=== PATIENT | male | born 1990 | race Caucasian/White ===

== ENCOUNTER 2017-01-26 08:34 | Emergency (ER) | payer MEDICAID ==
--- NOTE | ~2017-01-26 | CR20 ---
[facility]. [facility] A Service of [facility] & [facility] RADIOLOGY TEXT RESULTS PATIENT: AWA PALMA LOCATION: SED : [birth year] UNIT #: [id number] AGE: [address]: Eder White MD SEX: M ORDER DR: [id number] [place] [id number] E MR#: [id number] Acc #: [id number] NAME: AWA PALMA : 1990 SEX: M STUDY DATE/TIME: 01/26/2017 8:38 UNIT: SED ROOM: STUDY DESCRIPTION: CR Ankle Min 3 Views Lt Attending Physician: Eder White M.D. Ordering Physician: Eder White M.D. Primary Care Physician: No Primary Care Physician MEDICAL IMAGING REPORT This report is preliminary unless electronic signature is present. EXAM Left ankle, 3 views. HISTORY Trauma last night. Pain and swollen ankle. COMPARISON STUDIES No comparisons. FINDINGS There is mild soft tissue swelling adjacent to the medial malleolus. No fracture or dislocation. IMPRESSION No fracture or dislocation. Dictated by... Roman Dailey M.D. THIS IS AN ELECTRONICALLY VERIFIED REPORT Roman Dailey M.D. at 01/26/2017 4:32 PM ALYSE/shaggy TD: 01/26/2017 11:32 JOB #: [id number] MEDICAL IMAGING REPORT Page 1 of 1
--- NOTE | ~2017-01-26 | CR126 ---
[facility]. [facility] A Service of [facility] & [facility] RADIOLOGY TEXT RESULTS PATIENT: AWA PALMA LOCATION: SED : [birth year] UNIT #: [id number] AGE: [address]: Eder White MD SEX: M ORDER DR: [id number] [place] [id number] E MR#: [id number] Acc #: [id number] NAME: AWA PALMA : 1990 SEX: M STUDY DATE/TIME: 01/26/2017 8:38 UNIT: SED ROOM: STUDY DESCRIPTION: CR Foot Complete Min 3 View Lt Attending Physician: Eder White M.D. Ordering Physician: Eder White M.D. Primary Care Physician: Primary Care Physician No MEDICAL IMAGING REPORT This report is preliminary unless electronic signature is present. EXAM Left foot 3 views INDICATION Trauma last night. Pain in big toe, swollen ankle. COMPARISON None. FINDINGS No fracture or dislocation, soft tissue swelling or joint space abnormality. IMPRESSION Negative. Dictated by... Roman Dailey M.D. THIS IS AN ELECTRONICALLY VERIFIED REPORT Roman Dailey M.D. at 01/26/2017 4:32 PM ALYSE/tracy TD: 01/26/2017 11:08 JOB #: [id number] MEDICAL IMAGING REPORT Page 1 of 1
[~2017-01-26 08:34] MED LIST: FLEXERIL10 MG PO; NAPROSYN500 MG PO; NO MEDICATIONS; PREDNISONE10 MG PO
== END 2017-01-26 09:32 | disposition home or self-care (01) ==
LOC: SED 08:34
DX: S93.402A Sprain of unspecified ligament of left ankle, initial encounter (principal); S96.912A Strain of unspecified muscle and tendon at ankle and foot level, left foot, initial encounter; F17.200 Nicotine dependence, unspecified, uncomplicated; V00.131A Fall from skateboard, initial encounter; Y92.009 Unspecified place in unspecified non-institutional (private) residence as the place of occurrence of the external cause
CPT/HCPCS: 29515; 73610; 73630; 99283